=== PATIENT | female | born 1965 | race Two or more races ===

== ENCOUNTER → 2025-09-13 | Emergency (ER) | payer OTHER ==
[~2025-09-13] VITALS: Ht 162.6 cm; Wt 64.0 kg
[~2025-09-13] MED LIST: 0.9 % SODIUM CHLORIDE 1,000 ML IV SCH; BUCALSEP SPRAY30 ML MM; CIPRO500 MG PO; CIPROFLOXACIN IN 5 % DEXTROSE 400 MG/200 ML PIGGYBAG IV ONE; DICY20TA PO; FAMOtidine 10 MG/ML (4ML VIAL) IV ONE; HYOSCYAMINE SULFATE 0.125 MG TAB.SUBL PO ONE; INTESTINEX1 CA1 PO; KETOROLAC TROMETHAMINE 30 MG VIAL IV ONE; METRONIDAZOLE/SODIUM CHLORIDE 500 MG/100 ML PIGGYBACK IV ONE; METRONIDAZOLE500 MG PO; PEPCID AC20 MG PO; TRAMADOL HCL50 MG PO
[2025-09-13 18:45] LABS: BASO % 0.4 % (0.1-1.2); EOS # 0.13 (0.04-0.54); EOS % 1.3 % (0.7-7.0); LYMPH # 2.49 (1.18-3.74); LYMPH % 24.7 % (19.3-53.1); MEAN PLATELET VOLUME 11.40 fl (9.4-12.4); MONO # 0.78 (0.24-0.82); MONO % 7.7 % (4.7-12.5); NEUT # 6.61 (1.56-6.13); NEUT % 65.7 % (34.0-71.1); RED CELL DISTRIBUTION WIDTH 13.7 % (11.6-14.4)
[2025-09-13 19:11] LABS: ALT/SGPT 23.0 U/L (12-78); AST/SGOT 19.0 U/L (15-37); BILIRUBIN TOTAL 0.55 mg/dL (0.3-1.2); BUN CREA RATIO 12.0 (7.0-25.0); CREATININE SERUM 0.65 mg/dL (0.55-1.02); GFR 93.62; GLOBULINA 4.0 G/DL (2.4-3.5); GLUCOSE FASTING 101.0 mg/dL (65-100); OSMOLALITY SERUM 282.0 MOSM/KG (275-295)
[2025-09-13 19:23] LABS: URINE APPEARANCE Clear; URINE BILIRRUBIN Negative (NEGATIVE); URINE BLOOD Small; URINE COLOR Yellow; URINE GLUCOSE Negative (NEGATIVE); URINE LEUKOCYTE Negative; URINE NITRATE Negative; URINE PROTEIN Negative (NEGATIVE); URINE UROBILINOGEN 1.0 E.U./dl
[2025-09-13 19:26] LABS: URINE BACTERIA 61.2 uL (0.0-1933); URINE EPITHELIAL CELLS 2.6 uL (0.0-38.8); URINE RBC 19.7 uL (0.0-20.8); URINE WBC 11.8 uL (0.0-23.2)
[2025-09-13 19:48] LABS: URINE CAST 0.14 uL (0.0-1.40); URINE KETONE 80 (NEGATIVE)
== END | disposition home or self-care (01) ==
LOC: ER 17:43
PROVIDERS: Preventive Medicine Public Health & General Preventive Medicine
DX: R10.32 Left lower quadrant pain (principal); K92.1 Melena; K29.70 Gastritis, unspecified, without bleeding